=== PATIENT | male | born 1985 | race Caucasian/White ===

== ENCOUNTER 2019-12-14 12:42 | Emergency (ER) | payer OTHER ==
[~2019-12-14] VITALS: Ht 182.9 cm; Wt 94.8 kg
--- NOTE | 2019-12-14 13:00 | NUR ---
c/o lower back x 10 days "i feel numb on my right leg" Patient a/ox4, breathing even and unlabored, nos ob noted, needs attended, kept comfortable.
[2019-12-14 14:06] VITALS: BP 130/58
--- NOTE | 2019-12-14 14:07 | NUR ---
Patient discharged to home in stable condition. Written and verbal after care instructions given. Patient verbalizes understanding of instruction.
== END 2019-12-14 14:13 | disposition home or self-care (01) ==
LOC: ER 12:46
DX: M54.5 Low back pain (principal); G89.29 Other chronic pain; R20.0 Anesthesia of skin
CPT/HCPCS: 72131-TC